=== PATIENT | male | born 1935 ===

== ENCOUNTER 2017-03-06 09:47 | Outpatient (CLI) | payer OTHER ==
[~2017-03-06] VITALS: Ht 182.9 cm; Wt 83.0 kg
[~2017-03-06 09:47] MED LIST: CEFUROXIME500 MG PO; CLARITIN10 MG PO
[2017-03-06] MEDS ORDERED: FLONASE16 GM NASAL (11:27)
[2017-03-06] MEDS ORDERED: CLARITIN10 MG PO (11:27)
== END 2017-03-06 10:00 | disposition home or self-care (01) ==
LOC: OFIC 805 09:47
DX: J31.0 Chronic rhinitis (principal); R05 Cough; R49.8 Other voice and resonance disorders